=== PATIENT | male | born 1970 | race Caucasian/White ===

== ENCOUNTER → 2021-09-24 | Outpatient (CLI) | payer BC, OTHER ==
[2021-09-24 13:53] LABS: HCT 51.1 % (39.0-53.0); HGB 17.1 gm/dL (13.0-17.5); MCH 33.4 pg (25.0-35.0); MCHC 33.4 g/dL (31.0-37.0); MCV 100.1 fL (80.0-100.0); Mean Platelet Volume 8.1; Platelet Count 262 k/uL (150-450); RDW 13.4 % (11.5-15.5); WBC 8.4 k/uL (3.8-10.6)
[2021-09-24 13:58] LABS: ALT 24 U/L (4-49); African American GFR (CKD) 78 (>60 ml/min/1.73 sqM); Albumin 5.4 g/dL (3.5-5.0); Albumin/Globulin Ratio 1.2; Anion Gap 14 mmol/L; Blood Urea Nitrogen 27 mg/dL (9-20); Calcium 10.3 mg/dL (8.4-10.2); Carbon Dioxide 23 mmol/L (22-30); Chloride 101 mmol/L (98-107); Creatine Kinase 128 U/L (55-170); Globulin 4.4 g/dL; Glucose 134 mg/dL (74-99); Non-African American GFR(CKD) 68 (>60 ml/min/1.73 sqM); Sodium 138 mmol/L (137-145); Total Bilirubin 0.9 mg/dL (0.2-1.3); Total Protein 9.8 g/dL (6.3-8.2)
[2021-09-24 14:12] LABS: AST 47 U/L (17-59); Potassium 5.1 mmol/L (3.5-5.1)
[2021-09-24 14:13] LABS: Alkaline Phosphatase 88 U/L (38-126)
[2021-09-24 14:16] LABS: Troponin I <0.012 ng/mL (0.000-0.034)
== END | disposition home or self-care (01) ==
LOC: LABWHC1 13:23
PROVIDERS: ATTEND Internal Medicine
DX: R53.83 Other fatigue (principal); R11.0 Nausea
CPT/HCPCS: 36415; 80053; 82550; 82553; 84484; 85027; 87502

== ENCOUNTER 2021-09-26 12:36 | Observation (INO) | payer BC, OTHER ==
[2021-09-26] MEDS ORDERED: DICYCLOMINE 10 MG/ML 2 ML AMP IM STA (12:53)
[2021-09-26] MEDS ORDERED: ONDANSETRON 4 MG/2 ML VIAL IVP STA (12:53)
[2021-09-26] MEDS ORDERED: SODIUM CHLORIDE 0.9% 1,000 ML IV STA (12:53)
[2021-09-26] MEDS ORDERED: FAMOTIDINE 20 MG/2 ML VIAL IV STA (12:54)
--- NOTE | 2021-09-26 12:59 | ED ---
General Adult HPI - General Chief complaint: Nausea/Vomiting/Diarrhea Stated complaint: Decrease intake Time Seen by Provider: 09/26/21 12:47 Source: patient, family, RN notes reviewed Mode of arrival: ambulatory Limitations: no limitations - History of Present Illness Initial comments: Patient is a pleasant 51-year-old male presenting to the emergency department with concerns for dehydration. Patient is having loose stools 3-4 times daily. Patient has nausea and did vomit a couple times. Patient has had decreased oral intake over the past 3-4 days. No abdominal pain. No fever. Patient does have history of severe ulcerative colitis and does have history of previous colectomy. - Related Data Home Medications Medication Instructions Recorded Confirmed Ascorbic Acid [Vitamin C] 500 mg PO DAILY 09/26/21 09/26/21 Cholecalciferol [Vitamin D3 (25 25 mcg PO DAILY 09/26/21 09/26/21 Mcg = 1000 Iu)] Citalopram Hydrobromide [CeleXA] 20 mg PO DAILY 09/26/21 09/26/21 Cyanocobalamin [Vitamin B-12] 500 mcg PO DAILY 09/26/21 09/26/21 Ferrous Sulfate [Feosol] 325 mg PO DAILY 09/26/21 09/26/21 Omeprazole [PriLOSEC] 20 mg PO AC-BID 09/26/21 09/26/21 Ondansetron Odt [Zofran Odt] 4 mg PO TID PRN 09/26/21 09/26/21 Zinc 50 mg PO DAILY 09/26/21 09/26/21 Allergies Allergy/AdvReac Type Severity Reaction Status Date / Time No Known Allergies Allergy Verified 09/26/21 13:07 Review of Systems ROS Statement: Those systems with pertinent positive or pertinent negative responses have been documented in the HPI. ROS Other: All systems not noted in ROS Statement are negative. Constitutional: Denies: fever Eyes: Denies: eye pain ENT: Denies: ear pain Respiratory: Denies: cough Cardiovascular: Denies: chest pain Endocrine: Denies: fatigue Gastrointestinal: Reports: as per HPI, nausea, vomiting, diarrhea. Denies: abdominal pain Musculoskeletal: Denies: back pain Skin: Denies: rash Neurological: Denies: weakness Past Medical History Additional Past Medical History / Comment(s): Ulcerative colitis, scoliosis History of Any Multi-Drug Resistant Organisms: None Reported Past Surgical History: Bowel Resection Additional Past Surgical History / Comment(s): bowel torsion surg at [place] november 13 2015 Previous colectomy w/temporary colostomy since 2007 for ulcerative colitis.rt hand sx d/t laceration, egd/colonoscopies Past Anesthesia/Blood Transfusion Reactions: No Reported Reaction Past Psychological History: No Psychological Hx Reported Smoking Status: Never smoker Past Alcohol Use History: Rare Past Drug Use History: Cocaine, Marijuana - Past Family History Mother Family Medical History: Cancer, Chest Pain / Angina, Congestive Heart Failure (CHF), Osteoarthritis (OA) Additional Family Medical History / Comment(s): migraines,gout, from breast cancer at age 58. Father Family Medical History: Liver Disease, Myocardial Infarction ([place]) Additional Family Medical History / Comment(s): at age 63 from mi. hx alcohol abuse, cirrhosis of the liver,anemia General Exam Limitations: no limitations General appearance: alert, in no apparent distress Head exam: Present: normocephalic Eye exam: Present: normal appearance ENT exam: Present: normal oropharynx Neck exam: Present: normal inspection Respiratory exam: Present: normal lung sounds bilaterally Cardiovascular Exam: Present: regular rate, normal rhythm GI/Abdominal exam: Present: soft, normal bowel sounds. Absent: distended, tenderness, guarding, rebound, rigid, pulsatile mass Extremities exam: Present: normal inspection Neurological exam: Present: alert Psychiatric exam: Present: normal affect, normal mood Skin exam: Present: normal color Course Vital Signs 09/26/21 12:43 Temperature 98 F Pulse Rate 129 H Respiratory 22 Rate Blood Pressure 95/64 O2 Sat by Pulse 96 Oximetry EKG Findings - EKG Comments: EKG Findings:: Sinus tachycardia 101. KS 139. QRS 89. QT 32. QTC 374. Normal axis. Normal QRS. No acute ST change. Medical Decision Making - Medical Decision Making Patient reevaluated. Patient and family updated. Case discussed with Dr. Howard, who will admit covering for hospital observation call. - Lab Data Result diagrams: 09/26/21 12:57 09/26/21 12:57 Lab Results 09/26/21 09/26/21 09/26/21 Range/Units 12:57 12:57 12:57 WBC 6.5 (3.8-10.6) k/uL RBC 5.64 (4.30-5.90) m/uL Hgb 19.0 H (13.0-17.5) gm/dL Hct 54.9 H (39.0-53.0) % MCV 97.3 (80.0-100.0) fL MCH 33.7 (25.0-35.0) pg MCHC 34.7 (31.0-37.0) g/dL RDW 13.1 (11.5-15.5) % Plt Count 282 (150-450) k/uL MPV 8.5 D-Dimer (<0.60) mg/L FEU Sodium 137 (137-145) mmol/L Potassium 4.5 (3.5-5.1) mmol/L Chloride 97 L (98-107) mmol/L Carbon Dioxide 22 (22-30) mmol/L Anion Gap 18 mmol/L BUN 42 H (9-20) mg/dL Creatinine 1.72 H (0.66-1.25) mg/dL Est GFR (CKD-EPI)AfAm 52 (>60 ml/min/1.73 sqM) Est GFR (CKD-EPI)NonAf 45 (>60 ml/min/1.73 sqM) Glucose 104 H (74-99) mg/dL Calcium 10.6 H (8.4-10.2) mg/dL Total Bilirubin 0.7 (0.2-1.3) mg/dL AST 54 (17-59) U/L ALT 36 (4-49) U/L Alkaline Phosphatase 103 (38-126) U/L Troponin I <0.012 (0.000-0.034) ng/mL Total Protein 10.0 H (6.3-8.2) g/dL Albumin 5.5 H (3.5-5.0) g/dL Amylase 87 (30-110) U/L Lipase 138 (23-300) U/L 09/26/21 Range/Units 12:57 WBC (3.8-10.6) k/uL RBC (4.30-5.90) m/uL Hgb (13.0-17.5) gm/dL Hct (39.0-53.0) % MCV (80.0-100.0) fL MCH (25.0-35.0) pg MCHC (31.0-37.0) g/dL RDW (11.5-15.5) % Plt Count (150-450) k/uL MPV D-Dimer 0.26 (<0.60) mg/L FEU Sodium (137-145) mmol/L Potassium (3.5-5.1) mmol/L Chloride (98-107) mmol/L Carbon Dioxide (22-30) mmol/L Anion Gap mmol/L BUN (9-20) mg/dL Creatinine (0.66-1.25) mg/dL Est GFR (CKD-EPI)AfAm (>60 ml/min/1.73 sqM) Est GFR (CKD-EPI)NonAf (>60 ml/min/1.73 sqM) Glucose (74-99) mg/dL Calcium (8.4-10.2) mg/dL Total Bilirubin (0.2-1.3) mg/dL AST (17-59) U/L ALT (4-49) U/L Alkaline Phosphatase (38-126) U/L Troponin I (0.000-0.034) ng/mL Total Protein (6.3-8.2) g/dL Albumin (3.5-5.0) g/dL Amylase (30-110) U/L Lipase (23-300) U/L - Radiology Data Radiology results: image reviewed (Chest x-ray shows no acute process) Disposition Clinical Impression: KHLOE (acute kidney injury) Disposition: ADMITTED IP TO THIS HOSP Is patient prescribed a controlled substance at d/c from ED?: No Referrals: Prabhakar Peña MD [Primary Care Provider] - 1-2 days Time of Disposition: 13:48
[2021-09-26] MEDS ORDERED: DICYCLOMINE 20 MG TAB PO STA (13:16)
[2021-09-26 13:23] LABS: Albumin 5.5 g/dL (3.5-5.0); Calcium 10.6 mg/dL (8.4-10.2); Potassium 4.5 mmol/L (3.5-5.1); Total Bilirubin 0.7 mg/dL (0.2-1.3)
[2021-09-26 13:25] LABS: HCT 54.9 % (39.0-53.0); MCH 33.7 pg (25.0-35.0); MCHC 34.7 g/dL (31.0-37.0); MCV 97.3 fL (80.0-100.0); Mean Platelet Volume 8.5; Platelet Count 282 k/uL (150-450); RBC 5.64 m/uL (4.30-5.90); RDW 13.1 % (11.5-15.5); WBC 6.5 k/uL (3.8-10.6)
--- NOTE | 2021-09-26 13:26 | XR ---
EXAMINATION TYPE: XR chest 2V DATE OF EXAM: 09/26/2021 COMPARISON: 12/06/2015 HISTORY: Shortness of breath TECHNIQUE: Frontal and lateral views of the chest are obtained. FINDINGS: Scattered senescent parenchymal changes noted. Hyperinflation compatible with COPD. No evidence for infiltrate. No evidence for atelectasis. Heart size is stable. Mediastinal structures are stable and grossly unremarkable. No evidence for hilar prominence. Degenerative changes dorsal spine. IMPRESSION: 1. No evidence for acute pulmonary disease.
[2021-09-26] MEDS ORDERED: ONDANSETRON 4 MG/2 ML VIAL IVP PRN (13:46)
[2021-09-26] MEDS ORDERED: NALOXONE 0.4 MG/ML 1 ML VIAL IV PRN (13:46)
[2021-09-26] MEDS: SODIUM CHLORIDE 0.9% 1,000 ML IV SCH ×2 (14:02→22:38)
[2021-09-26 14:25] LABS: Band Neutrophils % 4 %; Eosinophils # (M) 0.07 k/uL (0-0.7); Lymphocytes # (M) 1.69 k/uL (1.0-4.8); Monocytes # (M) 0.85 k/uL (0-1.0); Neutrophils % (M) 56 %; Nucleated Red Blood Cells 0 /100 WBC (0-0); Total Cells Counted 100
[2021-09-26 14:27] LABS: RBC Morphology Normal
[2021-09-26 14:30] LABS: Appearance,Urine Cloudy (Clear); Bacteria,Urine Rare /hpf; Bilirubin,Urine Negative (Negative); Blood,Urine Moderate (Negative); Color,Urine Yellow; Glucose,Urine (UA) Negative (Negative); Hyaline Casts,Urine 232 /lpf (0-2); Ketones,Urine Negative (Negative); Leukocyte Esterase,Urine Negative (Negative); Mucus,Urine Moderate /hpf; Nitrite,Urine Negative (Negative); Protein,Urine 2+ (Negative); RBC,Urine 17 /hpf (0-5); Specific Gravity,Urine 1.028 (1.001-1.035); Squamous Epithelial Cell,Urine 1 /hpf (0-4); Urobilinogen,Urine <2.0 mg/dL (<2.0); WBC,Urine 5 /hpf (0-5)
[2021-09-26] MEDS ORDERED: MELATONIN 3 MG TABLET PO PRN (15:37)
[2021-09-26] MEDS ORDERED: HYDROcodone/APAP 5-325MG 1 EACH TAB PO PRN (15:37)
[2021-09-26] MEDS ORDERED: ACETAMINOPHEN TAB 325 MG TAB PO PRN (15:37)
--- NOTE | 2021-09-26 15:41 | P.HPIM ---
History of Present Illness H&P Date: 09/26/21 Patient is a 51-year-old male with ulcerative colitis, GERD, and scoliosis who presented to the ER with concerns for diarrhea and dehydration. In the ER he underwent an extensive evaluation. He was found to have an elevated hematocrit 54.9, BUN 42, creatinine 1.72, glucose 104, calcium 10.6, and elevated protein level. Urinalysis demonstrated hyalin casts. Patient was tachycardic with a pulse of 129 and mildly hypotensive at 95/64. In the ER he was treated with Pepcid, Zofran, and IV fluids. Patient seen and examined at bedside. He started with not feeling well on night. By Monday he had intractable nausea and vomiting with decreased oral intake. 2 days ago he started having some diarrhea. He denies any abdominal cramping. No fevers or chills. He does have one sick contact with nausea and vomiting with that has since resolved. He does have a history of significant ulcerative colitis resulting in a bowel resection with ileostomy and then reversal. He is not on any biologic or immunosuppressants since surgery. He has no history of C. diff. He was recently on amoxicillin due to a finger injury with infection. His PCP advised to stop this when the diarrhea started. Pertinent positives and negatives as discussed in HPI, a complete review of systems was performed and all other systems are negative. General: Ill appearing, mild distress=, appears at stated age Derm: warm, dry Head: atraumatic, normocephalic, symmetric Eyes: EOMI, no lid lag, anicteric sclera, pupils equal round reactive to light ENT: Nose and ears atraumatic, no thrush, no pharyngeal erythema Neck: No thyromegaly, no cervical lymphadenopathy, trachea midline, supple Mouth: no lip lesion, mucous membranes dry Cardiovascular: S1S2 tachycardic, no murmur, positive posterior tibial pulse bilateral, no edema, capillary refill less than 2 seconds Lungs: clear to ascultation bilateral, no ronchi, no rales, no wheeze, no accessory muscle use Abdominal: soft, nontender to palpation, no guarding, no appreciable organomegaly, normal bowel sounds Ext: no gross muscle atrophy, muscle strength muscle strength 5 out of 5 in all 4 extremities, no contractures Neuro: CN II-XI grossly intact, light touch intact all 4 extremities, finger to nose within normal limits, Psych: Alert, oriented, appropriate affect Assessment/plan: Gastroenteritis with intractable diarrhea -Check C. diff -IV fluids -Antiemetics -If patient has blood in stool or abdominal pain we'll obtain computed tomography scan. He does not feel this is consistent with his prior ulcerative colitis flares. Acute kidney injury Hypercalcemia Dehydration -IV fluids -Repeat labs in a.m. The patient is placed in observation with an anticipated less than 2 midnight s erma for evaluation of dehydration and intractable diarrhea. DVT prophylaxis: SCDs Discussed with: Patient, , nursing, physician Anticipated discharge date: in AM Anticipated discharge place: Home A total of 65 minutes was spent on the care of this complex patient more than 50% of the time was spent in counseling and care coordination. Past Medical History Additional Past Medical History / Comment(s): Ulcerative colitis, scoliosis History of Any Multi-Drug Resistant Organisms: None Reported Past Surgical History: Bowel Resection Additional Past Surgical History / Comment(s): bowel torsion surg at [place] november 13 2015 Previous colectomy w/temporary colostomy since reversed 2007 for ulcerative colitis.rt hand sx d/t laceration, egd/colonoscopies Past Anesthesia/Blood Transfusion Reactions: No Reported Reaction Past Psychological History: No Psychological Hx Reported Smoking Status: Never smoker Past Alcohol Use History: Rare Past Drug Use History: Cocaine, Marijuana - Past Family History Mother Family Medical History: Cancer, Chest Pain / Angina, Congestive Heart Failure (CHF), Osteoarthritis (OA) Additional Family Medical History / Comment(s): migraines,gout, from breast cancer at age 58. Father Family Medical History: Liver Disease, Myocardial Infarction ([place]) Additional Family Medical History / Comment(s): at age 63 from mi. hx alcohol abuse, cirrhosis of the liver,anemia Medications and Allergies Home Medications Medication Instructions Recorded Confirmed Type Ascorbic Acid [Vitamin C] 500 mg PO DAILY 09/26/21 09/26/21 History Cholecalciferol [Vitamin D3 (25 25 mcg PO DAILY 09/26/21 09/26/21 History Mcg = 1000 Iu)] Citalopram Hydrobromide [CeleXA] 20 mg PO DAILY 09/26/21 09/26/21 History Cyanocobalamin [Vitamin B-12] 500 mcg PO DAILY 09/26/21 09/26/21 History Ferrous Sulfate [Feosol] 325 mg PO DAILY 09/26/21 09/26/21 History Omeprazole [PriLOSEC] 20 mg PO AC-BID 09/26/21 09/26/21 History Ondansetron Odt [Zofran Odt] 4 mg PO TID PRN 09/26/21 09/26/21 History Zinc 50 mg PO DAILY 09/26/21 09/26/21 History Allergies Allergy/AdvReac Type Severity Reaction Status Date / Time No Known Allergies Allergy Verified 09/26/21 13:07 Physical Exam Osteopathic Statement: *. No significant issues noted on an osteopathic structural exam other than those noted in the History and Physical/Consult. Vitals: Vital Signs Temp Pulse Resp BP Pulse Ox 09/26/21 13:53 88 18 129/94 98 09/26/21 12:43 98 F 129 H 22 95/64 96 Intake and Output 09/26/21 09/26/21 09/26/21 06:59 14:59 22:59 Other: Weight 61.235 kg Results CBC & Chem 7: 09/26/21 12:57 09/26/21 12:57 Labs: Abnormal Lab Results - Last 24 Hours (Table) 09/26/21 09/26/21 09/26/21 Range/Units 12:57 12:57 12:57 Hgb 19.0 H (13.0-17.5) gm/dL Hct 54.9 H (39.0-53.0) % Chloride 97 L (98-107) mmol/L BUN 42 H (9-20) mg/dL Creatinine 1.72 H (0.66-1.25) mg/dL Glucose 104 H (74-99) mg/dL Calcium 10.6 H (8.4-10.2) mg/dL Total Protein 10.0 H (6.3-8.2) g/dL Albumin 5.5 H (3.5-5.0) g/dL Urine Protein 2+ H (Negative) Urine Blood Moderate H (Negative) Urine RBC 17 H (0-5) /hpf Urine Bacteria Rare H (None) /hpf Hyaline Casts 232 H (0-2) /lpf Urine Mucus Moderate H (None) /hpf
[2021-09-27 02:58] VITALS: RESP 18
[2021-09-27 05:56] LABS: HCT 44.1 % (39.0-53.0); HGB 14.7 gm/dL (13.0-17.5); MCHC 33.3 g/dL (31.0-37.0); MCV 99.1 fL (80.0-100.0); Mean Platelet Volume 8.4; Platelet Count 248 k/uL (150-450); RBC 4.45 m/uL (4.30-5.90); RDW 12.4 % (11.5-15.5); WBC 6.5 k/uL (3.8-10.6)
[2021-09-27 06:14] LABS: ALT 58 U/L (4-49); AST 70 U/L (17-59); African American GFR (CKD) >90 (>60 ml/min/1.73 sqM); Albumin 3.7 g/dL (3.5-5.0); Albumin/Globulin Ratio 1.1; Alkaline Phosphatase 96 U/L (38-126); Anion Gap 11 mmol/L; Blood Urea Nitrogen 25 mg/dL (9-20); Calcium 8.8 mg/dL (8.4-10.2); Carbon Dioxide 20 mmol/L (22-30); Chloride 105 mmol/L (98-107); Globulin 3.3 g/dL; Glucose 91 mg/dL (74-99); Magnesium 1.8 mg/dL (1.6-2.3); Non-African American GFR(CKD) >90 (>60 ml/min/1.73 sqM); Potassium 4.6 mmol/L (3.5-5.1); Sodium 136 mmol/L (137-145); Total Bilirubin 0.6 mg/dL (0.2-1.3)
[2021-09-27 08:13] VITALS: BP 109/62; PULSE 70; TEMP 97.5
[2021-09-27] MEDS ORDERED: PANTOPRAZOLE 40 MG/10 ML VIAL IV SCH (09:00)
[2021-09-27] MEDS ORDERED: CITALOPRAM HYDROBROMIDE 20 MG TAB PO SCH (09:00)
--- NOTE | 2021-09-27 09:31 | P.DS ---
Providers Date of admission: 09/26/21 13:47 Expected date of discharge: 09/27/21 Attending physician: Samantha Metz DO Primary care physician: Mariana Radford [facility] Course: Discharge Diagnosis: Gastritis with intractable diarrhea, resolved Dehydration, resolved Acute kidney injury, resolved Hypercalcemia resulting from dehydration, resolved with IV fluid hydration Elevated hemoglobin and hematocrit, back to baseline normal levels status post IV fluid hydration Ulcerative colitis, patient denies abdominal pain and reports total resolution of diarrhea GERD, continue home omeprazole 20 mg twice daily Hospital Course: Patient is a very pleasant 51-year-old male with a past medical history of ulcerative colitis, GERD, and scoliosis. He presented to the emergency department on 09/26/21 with a chief complaint of diarrhea and dehydration. In the emergency department patient underwent extensive evaluation and was found to have an elevated hemoglobin of 19.0 and hematocrit of 54.9, BUN of 42, creatinine 1.72, and GFR 45 glucose of 104, and calcium of 10.6. Urinalysis positive for blood and hyaline casts. Patient denied having any urinary complaints. Patient was found to be tachycardic with a heart rate of 129 and slightly hypotensive with a blood pressure of 95/64. Patient was initially treated with Pepcid, Zofran, and IV fluid hydration. Patient was then admitted under our services to observation and continued with vigorous IV hydration. Patient reports complete resolution of diarrhea as well as total resolution of abdominal pain and denied having any other complaints at this time. Patient requesting discharge stating status post IV fluid hydration that he feels significantly better and 100% back to himself. Elevated hemoglobin and hematocrit back to normal status post hydration. Acute kidney injury resolved with repeat BUN 25, creatinine 0.95, and GFR greater than 90. Vital signs unremarkable. Patient medically stable for discharge at this time and to follow up outpatient with PCP in 1-2 days. Patient instructed if diarrhea returns or patient begins to develop abdominal pain, melena, hematochezia, nausea, vomiting, or hematemesis he is to return to the emergency department immediately. Patient verbalized understanding and denied having any questions or concerns at this time. Patient medically stable for discharge. Patient seen and examined at bedside. Vital signs reviewed and stable. General: Nontoxic, no distress and appears stated age. Derm: Skin warm and dry, normal coloration for ethnicity. Head: Atraumatic, normocephalic and symmetric. Eyes: EOMs intact, no lid lag, and anicteric sclera Mouth: no lip lesions, mucus membranes moist Cardiovascular: regular rate and rhythm with normal S1S2, no murmur, positive posterior tibial pulses bilaterally, and cap refill < 2 seconds. Lungs: Respirations even, regular, and unlabored on room air. Lungs CTA bilaterally, no rhonchi, no rales, no wheezing, and no accessory muscle usage. Abdominal: soft, nontender to palpation, no guarding, no appreciable organomegaly Ext: ROM intact. No gross muscle atrophy, no edema, no contractures Neuro: Speech clear, face symmetrical and CN II-XII grossly intact with no noted focal neuro deficits Psych: Alert and oriented to person, place, time, and situation. Appropriate and pleasant affect. A total of 36 minutes of time were spent preparing this complex discharge summary. Pt was discharged on 09/27/21 at 9:32 AM. Andry Del Rio NP rendered care for this patient independently, reviewed the findings and plan as documented in the note above. I did not physically speak with or examine the patient on this date. Patient Condition at Discharge: Stable Plan - Discharge Summary Discharge Rx Participant: No New Discharge Prescriptions: Continue Ferrous Sulfate [Iron (65 MG Elemental)] 325 mg PO DAILY Cholecalciferol [Vitamin D3 (25 Mcg = 1000 Iu)] 25 mcg PO DAILY Ascorbic Acid [Vitamin C] 500 mg PO DAILY Zinc 50 mg PO DAILY Ondansetron Odt [Zofran ODT] 4 mg PO TID PRN PRN Reason: Nausea Omeprazole [PriLOSEC] 20 mg PO AC-BID Citalopram Hydrobromide [CeleXA] 20 mg PO DAILY Cyanocobalamin [Vitamin B-12] 500 mcg PO DAILY Discharge Medication List Ascorbic Acid [Vitamin C] 500 mg PO DAILY 09/26/21 [History] Cholecalciferol [Vitamin D3 (25 Mcg = 1000 Iu)] 25 mcg PO DAILY 09/26/21 [History] Citalopram Hydrobromide [CeleXA] 20 mg PO DAILY 09/26/21 [History] Cyanocobalamin [Vitamin B-12] 500 mcg PO DAILY 09/26/21 [History] Ferrous Sulfate [Iron (65 MG Elemental)] 325 mg PO DAILY 09/26/21 [History] Omeprazole [PriLOSEC] 20 mg PO AC-BID 09/26/21 [History] Ondansetron Odt [Zofran ODT] 4 mg PO TID PRN 09/26/21 [History] Zinc 50 mg PO DAILY 09/26/21 [History] Follow up Appointment(s)/Referral(s): Prabhakar Peña MD [Primary Care Provider] - 1-2 days Patient Instructions/Handouts: Acute Abdominal Pain (DC) Activity/Diet/Wound Care/Special Instructions: Activity: As tolerated. Take breaks as needed. Diet: Heart healthy and carb consistent diet. Avoid salts, or foods with hidden salts such as canned or boxed foods and frozen dinners. Extra salt makes your heart work harder and traps the fluid in your body for longer. Special Instructions: Take all of your medications as directed and remember to keep all of your doctor's appointments and follow-up as needed. Thank you for allowing us to participate in your care, it was truly a pleasure having you for our patient!!! Discharge Disposition: HOME SELF-CARE
== END 2021-09-27 11:10 | disposition home or self-care (01) ==
LOC: EC 12:36 → 6NMEDSUR 13:47
PROVIDERS: ADMIT Internal Medicine; ATTEND Internal Medicine
DX: K29.70 Gastritis, unspecified, without bleeding (principal); N17.9 Acute kidney failure, unspecified; E86.0 Dehydration; K51.90 Ulcerative colitis, unspecified, without complications; E83.52 Hypercalcemia; K21.9 Gastro-esophageal reflux disease without esophagitis; M41.9 Scoliosis, unspecified; I95.9 Hypotension, unspecified; R79.89 Other specified abnormal findings of blood chemistry; R00.0 Tachycardia, unspecified; Z79.899 Other long term (current) drug therapy; Z90.49 Acquired absence of other specified parts of digestive tract; Z98.890 Other specified postprocedural states; Z86.19 Personal history of other infectious and parasitic diseases; Z87.828 Personal history of other (healed) physical injury and trauma; Z83.79 Family history of other diseases of the digestive system; Z80.3 Family history of malignant neoplasm of breast; Z82.61 Family history of arthritis; Z82.0 Family history of epilepsy and other diseases of the nervous system; Z82.69 Family history of other diseases of the musculoskeletal system and connective tissue; Z81.1 Family history of alcohol abuse and dependence; Z83.2 Family history of diseases of the blood and blood-forming organs and certain disorders involving the immune mechanism
CPT/HCPCS: 96361 ×3; 96374; 99285; 36415; 93005; 85379; 83880; 80053 ×2; 82150; 83690; 83735; 84484; 85025; 85027; 81001; 71046; G0378 ×2; C9113